=== PATIENT | male | born 1995 | race Caucasian/White ===

== ENCOUNTER 2019-10-01 13:20 | Emergency (ER) | payer OTHER ==
--- NOTE | 2019-10-01 14:07 | ER Document Report ---
ED Medical Screen (RME) - General Chief Complaint: Arm Pain Stated Complaint: RIGHT ARM PAIN Time Seen by Provider: 10/01/19 14:01 Mode of Arrival: Ambulatory Information source: Patient Notes: 24-year-old male presents with right wrist and hand swelling. Patient reports on Friday he had a large tattoo done to his right forearm. He reports that his wrist and hand started swelling. Denies fever vomiting diarrhea. Forearm is swollen. Some erythema noted around the top part of his tattoo. I have greeted and performed a rapid initial assessment of this patient. A comprehensive ED assessment and evaluation of the patient, analysis of test results and completion of the medical decision making process will be conducted by additional ED providers. - Related Data Allergies/Adverse Reactions: No Known Allergies Allergy (Unverified 10/01/19 14:00) Physical Exam - Vital signs Vitals: Temp Pulse Resp BP Pulse Ox 99.1 F 94 16 143/52 H 97 10/01/19 13:25 10/01/19 13:25 10/01/19 13:25 10/01/19 13:25 10/01/19 13:25 Course - Vital Signs Vital signs: Temp Pulse Resp BP Pulse Ox 99.1 F 94 16 143/52 H 97 10/01/19 13:25 10/01/19 13:25 10/01/19 13:25 10/01/19 13:25 10/01/19 13:25
[2019-10-01 14:29] LABS: ABSOLUTE LYMPHOCYTES (AUTO) 1.9 10^3/uL (0.5-4.7); ABSOLUTE MONOCYTES (AUTO) 0.5 10^3/uL (0.1-1.4); BASOPHILS % (AUTO) 0.5 % (0-2); TOTAL CELLS COUNTED % (AUTO) 100 %
[2019-10-01 14:40] LABS: ABSOLUTE EOSINOPHILS # (AUTO) 0.4 10^3/uL (0.0-0.6); ABSOLUTE NEUT (AUTO) 4.2 10^3/uL (1.7-8.2); EOSINOPHILS % (AUTO) 6.1 % (0-6); HEMATOCRIT 41.5 % (37.9-51.0); HEMOGLOBIN 15.1 g/dL (13.5-17.0); MEAN CORPUSCULAR HEMOGLOBIN 32.2 pg (27.0-33.4); MEAN CORPUSCULAR HGB CONC 36.3 g/dL (32.0-36.0); MEAN CORPUSCULAR VOLUME 89 fl (80-97); MONOCYTES % (AUTO) 6.7 % (3-13); PLATELET COUNT 185 10^3/uL (150-450); RED BLOOD COUNT 4.67 10^6/uL (4.35-5.55); RED CELL DISTRIBUTION WIDTH 12.8 % (11.5-14.0); SEGMENTED NEUTROPHILS % (AUTO) 59.7 % (42-78)
[2019-10-01 14:54] LABS: ALBUMIN 4.8 g/dL (3.5-5.0); ALKALINE PHOSPHATASE 75 U/L (38-126); ANION GAP 10 (5-19); ASPARTATE AMINO TRANSFERASE 31 U/L (17-59); BILIRUBIN,TOTAL 0.9 mg/dL (0.2-1.3); BLOOD UREA NITROGEN 17 mg/dL (7-20); CALCIUM 9.8 mg/dL (8.4-10.2); CARBON DIOXIDE 27 mmol/L (22-30); CHLORIDE 101 mmol/L (98-107); GLUCOSE 102 mg/dL (75-110); POTASSIUM 4.5 mmol/L (3.6-5.0); TOTAL PROTEIN 7.6 g/dL (6.3-8.2)
--- NOTE | 2019-10-01 15:09 | ER Document Report ---
ED Extremity Problem, Upper - General Chief Complaint: Swelling Stated Complaint: RIGHT ARM PAIN Time Seen by Provider: 10/01/19 14:01 Mode of Arrival: Ambulatory Notes: CHIEF COMPLAINT: Swelling of right hand for 2 days HPI: 24-year-old male presenting to the emergency department complaining of swelling to the right hand over the last 2 days. Patient had a large tattoo on the dorsal and lateral aspects of the right forearm done this week. States the stenciling was done 4 days ago the coloration was done 2 days ago. He noticed the swelling yesterday and it has continued today. No fever. Has never had a problem with a prior tattoo ROS: See HPI - all other systems were reviewed and are otherwise negative Constitutional: no fever Integumentary: no rash Allergy: no hives Musculoskeletal: + extremity pain or swelling Neurological: no numbness/tingling, no weakness MEDICATIONS: I agree with the patient medications as charted by the RN. ALLERGIES: I agree with the allergies as charted by the RN. PAST MEDICAL HISTORY/PAST SURGICAL HISTORY: Reviewed and agree as charted by RN. SOCIAL HISTORY: Reviewed and agree as charted by RN. FAMILY HISTORY: No significant familial comorbid conditions directly related to patient complaint EXAM: Reviewed vital signs as charted by RN. CONSTITUTIONAL: Alert and oriented and responds appropriately to questions. Well-appearing; well-nourished HEAD: Normocephalic; atraumatic EYES: Conjunctivae clear, sclerae non-icteric ENT: normal nose; no rhinorrhea; moist mucous membranes NECK: Supple without meningismus CARD: symmetric distal pulses RESP: Normal chest excursion without splinting or tachypnea ABD/GI: non-distended BACK: The back appears normal EXT: Normal ROM in all joints; non-tender to palpation; no cyanosis, no effusions, there is slight edema to the dorsal aspect of the right hand to the level of the wrist. No visible bruising. No overlying erythema. No increased swelling or heat. SKIN: Normal color for age and race; warm; dry; good turgor; large tattoo is noted to the right forearm on the dorsal and lateral aspects. Very minimal erythema surrounding the edges of the tattoo nontender NEURO: Moves all extremities equally; Motor and sensory function intact PSYCH: The patient's mood and manner are appropriate. Grooming and personal hygiene are appropriate. MDM: 24-year-old male with what I suspect is a dependent edema to the hand. Patient had a very large area of the forearm covered with an extensive colored tattoo 2 days ago just prior to onset of the swelling likely there was some localized inflammation and edema from the tattooing which caused some lymph impingement from the hand. I have a very low suspicion for an acute cellulitis, there is no increased warmth or heat, the CBC drawn in triage process is normal. Given the recent trauma to the arm I will place the patient on a course of antibiotics to ensure that there is no secondary infection beginning but patient will otherwise elevate the arm and follow-up with PCP in 2 days for recheck - Related Data Allergies/Adverse Reactions: No Known Allergies Allergy (Unverified 10/01/19 14:00) Home Medications: denies Past Medical History - General Information source: Patient - Social History Smoking Status: Never Smoker Chew tobacco use (# tins/day): No Frequency of alcohol use: None Drug Abuse: None Family History: Reviewed & Not Pertinent Patient has suicidal ideation: No Patient has homicidal ideation: No Physical Exam - Vital signs Vitals: Temp Pulse Resp BP Pulse Ox 99.1 F 94 16 143/52 H 97 10/01/19 13:25 10/01/19 13:25 10/01/19 13:25 10/01/19 13:25 10/01/19 13:25 Course - Vital Signs Vital signs: Temp Pulse Resp BP Pulse Ox 99.1 F 94 16 143/52 H 97 10/01/19 14:01 10/01/19 13:25 10/01/19 13:25 10/01/19 13:25 10/01/19 13:25 - Laboratory Result Diagrams: 10/01/19 14:11 10/01/19 14:11 Laboratory results interpreted by me: 10/01/19 14:11 MCHC 36.3 H Eos % (Auto) 6.1 H Discharge - Discharge Clinical Impression: Edema of hand Post-traumatic skin infection Qualifiers: Encounter type: initial encounter Qualified Code(s): T79.8XXA - Other early complications of trauma, initial encounter; L08.9 - Local infection of the skin and subcutaneous tissue, unspecified Condition: Stable Disposition: HOME, SELF-CARE Instructions: Cellulitis ([facility]) Additional Instructions: Keep the arm elevated above heart level for the next 2 days to help with the swelling. You may use an Robin wrap as well to help with the swelling. Take the antibiotics to ensure there is no secondary infection developing as discussed. Follow-up with PCP for reevaluation of symptoms if they persist or return if symptoms worsen Prescriptions: Doxycycline Monohydrate 100 mg PO BID #[id number] capsule Referrals: PERI KEARNEY MD [[facility]AFF] - Follow up as needed
[2019-10-01 15:20] VITALS: BP 138/56
== END 2019-10-01 15:20 | disposition home or self-care (01) ==
LOC: ER 13:20
DX: T79.8XXA Other early complications of trauma, initial encounter (principal); L08.9 Local infection of the skin and subcutaneous tissue, unspecified; R60.9 Edema, unspecified; M79.601 Pain in right arm; X58.XXXA Exposure to other specified factors, initial encounter
CPT/HCPCS: 36415; 80053; 85025; 99283